=== PATIENT | female | born 1940 | race Caucasian/White ===

== ENCOUNTER → 2016-11-05 | Outpatient (CLI) | payer OTHER ==
[~2016-11-05] MED LIST: ASPI81TA28 PO; BETAMETHASONE TOP; FMR25 PO; HYDR12.55 PO; METO50TA16 PO; NTRGSL/4 UT; POTA10CA28 PO; PRLSR20 PO; SIMV40TA2 PO
--- NOTE | 2016-11-08 13:48 | MAMMOGRAPHY REPORT ---
UNILATERAL RIGHT DIGITAL DIAGNOSTIC MAMMOGRAM TOMOSYNTHESIS WITH CAD AND TARGETED RIGHT ULTRASOUND: 11/05/2016 CLINICAL HISTORY: History right breast cancer status post lumpectomy and radiation therapy. Here fo r her first follow-up after treatment. She denies any palpable lumps or other new complaints. TECHNIQUE: Breast tomosynthesis in addition to standard 2D mammography was performed. Current study was also evaluated with a Computer Aided Detection (CAD) system. Right CC and MLO 2-D and tomosynt hesis images and spot magnification right cc and ML views were obtained. COMPARISON: Comparison is made to exams dated: 05/19/2016 localization, 05/11/2016 mammogram, and 2015 ultrasound - [facility]. BREAST COMPOSITION: There are scattered areas of fibroglandular density in the right breast. FINDINGS: There are new post surgical changes in the right upper outer quadrant from prior lumpecto my, including density, architectural distortion, and surgical clips at the lumpectomy bed. On the t omosynthesis images an oval mass is noted at the lumpectomy bed measuring up to 5 cm in size. There is diffuse right breast skin and trabecular thickening, likely related to radiation therapy. The r emainder of the right breast is stable compared to prior exams, without suspicious masses, calcifica tions, or areas of architectural distortion noted. Scattered benign appearing calcifications are no t significantly changed. Targeted ultrasound was performed of the lumpectomy bed. In the right breast at 10:00 along the late ral aspect of the scar, there is an oval anechoic circumscribed mass with a few thin internal septat ions, consistent with a postsurgical fluid collection. This measures at least 4.4 x 1.2 x 2.5 cm an d corresponds with the mass seen on the mammogram. No suspicious solid masses were evident. IMPRESSION: ACR-BI-RADS CATEGORY 3: PROBABLY BENIGN, TARGETED ULTRASOUND ACR-BI-RADS CATEGORY 3: MT OBABLY BENIGN Expected posttreatment changes in the right breast, including a postsurgical fluid collection at the lumpectomy bed measuring at least 4.4 cm. There is no mammographic evidence of malignancy in the r ight breast. Recommend bilateral diagnostic tomosynthesis mammograms in 6 months, to reevaluate the right breast posttreatment changes and for routine mammography of the left breast. The patient has been verbally notified of the results. Approximately 10% of breast cancers are not detected with mammography. A negative mammographic repor t should not delay biopsy if a clinically suggestive mass is present. Bonnie Medina M.D. ah/:11/05/2016 10:51:42 Enrollment Specialist: Mallory PARIKH)(Giancarlo), [facility] letter sent: Personal History 3 BI-RADS Code: ACR-BI-RADS Category 3: Probably Benign Ultrasound BI-RADS: ACR-BI-RADS Category 3: P robably Benign
== END | disposition home or self-care (01) ==
LOC: C.MAMM 10:07
PROVIDERS: ATTEND Radiology Radiation Oncology
DX: C50.411 Malignant neoplasm of upper-outer quadrant of right female breast (principal); Z98.890 Other specified postprocedural states; Z92.3 Personal history of irradiation

== ENCOUNTER → 2016-11-12 | Outpatient (CLI) | payer OTHER ==
[2016-11-12 13:37] LABS: BASO % 0.2 %; BASO ABS # 0.01 K/uL (0-0.2); COMPLETE YES; EOS % 3.1 %; HEMATOCRIT 39.6 % (37-47); IG% 0.2 %; LYMPH % 22.6 %; LYMPH ABS # 1.01 K/uL (1.2-3.4); MEAN CELL VOLUME 90.4 fL (80-100); MEAN CORPUSCULAR HEMOGLOBIN 31.3 pg (25-34); MEAN CORPUSCULAR HGB CONC 34.6 g/dl (32-36); MEAN PLATELET VOLUME 10.5 fL (7.4-10.4); MONO % 10.1 %; NEUT % 63.8 %; PLATELET COUNT 250 K/uL (130-400); RED BLOOD COUNT 4.38 M/uL (4.2-5.4); WHITE BLOOD COUNT 4.47 K/uL (4.8-10.8)
[2016-11-12 13:50] LABS: ALT/SGPT 23 U/L (12-78); AST/SGOT 14 U/L (15-37); BLOOD UREA NITROGEN 21 mg/dl (7-18); BUN/CREATININE RATIO 25.3 (10-20); CALCIUM 10.1 mg/dl (8.5-10.1); CARBON DIOXIDE 31 mmol/L (21-32); CHLORIDE 106 mmol/L (98-107); CREATININE 0.82 mg/dl (0.60-1.20); GLUCOSE 124 mg/dl (70-99); POTASSIUM 3.7 mmol/L (3.5-5.1); SODIUM 144 mmol/L (136-145)
[2016-11-12 13:51] LABS: ALKALINE PHOSPHATASE 113 U/L (45-117)
== END | disposition home or self-care (01) ==
LOC: C.LABMFLN 08:02
PROVIDERS: ATTEND Internal Medicine Hematology & Oncology
DX: C50.411 Malignant neoplasm of upper-outer quadrant of right female breast (principal)

== ENCOUNTER → 2016-12-09 | Outpatient (CLI) | payer OTHER | END | disposition home or self-care (01) | LOC: C.MAMM 13:42 | PROVIDERS: ATTEND Internal Medicine Hematology & Oncology | DX: C50.411 Malignant neoplasm of upper-outer quadrant of right female breast (principal); M81.0 Age-related osteoporosis without current pathological fracture; M85.88 Other specified disorders of bone density and structure, other site ==

== ENCOUNTER → 2017-02-11 | Outpatient (CLI) | payer OTHER ==
[2017-02-11 13:31] LABS: BASO % 0.2 %; BASO ABS # 0.01 K/uL (0-0.2); COMPLETE YES; EOS % 1.5 %; HEMATOCRIT 38.4 % (37-47); IG% 0.2 %; LYMPH % 17.4 %; LYMPH ABS # 0.82 K/uL (1.2-3.4); MEAN CELL VOLUME 90.8 fL (80-100); MEAN CORPUSCULAR HEMOGLOBIN 30.5 pg (25-34); MEAN CORPUSCULAR HGB CONC 33.6 g/dl (32-36); MEAN PLATELET VOLUME 10.8 fL (7.4-10.4); MONO % 10.6 %; NEUT % 70.1 %; PLATELET COUNT 241 K/uL (130-400); RED BLOOD COUNT 4.23 M/uL (4.2-5.4); WHITE BLOOD COUNT 4.72 K/uL (4.8-10.8)
[2017-02-11 13:56] LABS: ALT/SGPT 20 U/L (12-78); BLOOD UREA NITROGEN 17 mg/dl (7-18); BUN/CREATININE RATIO 22.3 (10-20); CARBON DIOXIDE 32 mmol/L (21-32); CHLORIDE 105 mmol/L (98-107); CREATININE 0.74 mg/dl (0.60-1.20); GLUCOSE 131 mg/dl (70-99); SODIUM 143 mmol/L (136-145)
[2017-02-11 13:59] LABS: ALB/GLOB RATIO 0.9 (0.9-2); ALKALINE PHOSPHATASE 109 U/L (45-117); AST/SGOT 15 U/L (15-37)
[2017-02-11 14:52] LABS: CALCIUM 10.5 mg/dl (8.5-10.1)
== END | disposition home or self-care (01) ==
LOC: C.LABMFLN 09:05
PROVIDERS: ATTEND Internal Medicine Hematology & Oncology
DX: C50.411 Malignant neoplasm of upper-outer quadrant of right female breast (principal)

== ENCOUNTER → 2017-04-08 | Outpatient (CLI) | payer OTHER ==
--- NOTE | 2017-04-08 13:22 | MAMMOGRAPHY REPORT ---
BILATERAL DIGITAL DIAGNOSTIC MAMMOGRAM TOMOSYNTHESIS WITH CAD AND TARGETED RIGHT ULTRASOUND: 04/08/2017 CLINICAL HISTORY: History of right breast cancer status post lobectomy and radiation therapy, here fo r her second follow-up after treatment. She reports persistent pain in the right breast in the regio n of her scar from sentinel lymph node biopsy. TECHNIQUE: Breast tomosynthesis in addition to standard 2D mammography was performed. Current study was also evaluated with a Computer Aided Detection (CAD) system. Bilateral CC and MLO 2-D and tomosy nthesis images and spot magnification right cc and ML views were obtained. COMPARISON: Comparison is made to exams dated: 11/05/2016 ultrasound, 11/05/2016 mammogram, 05/19/2016 lo calization, 05/11/2016 mammogram, and 05/11/2016 ultrasound - [facility]. BREAST COMPOSITION: There are scattered areas of fibroglandular density in both breasts. FINDINGS: A square marker daniels the site of pain in the right upper outer quadrant. Again noted are post surgical changes in the right upper outer quadrant from prior lumpectomy, including density, ar chitectural distortion, and surgical clips at the lumpectomy bed. The density at the lumpectomy bed is decreased compared to the November 2016 exam. There is stable mild diffuse right breast skin thicken ing, likely due to radiation therapy. The remainder of both breasts are stable compared to prior exa ms, without suspicious masses, calcifications, or areas of architectural distortion noted. Scattered bilateral benign-appearing calcifications are not significantly changed. Targeted ultrasound was performed of the area of pain pointed out by the patient, along the scar in h er right axillary region from prior sentinel lymph node biopsy. No suspicious masses or other suspic ious sonographic abnormalities are evident in this region. Ultrasound of the lumpectomy bed in the r ight upper outer quadrant at approximately 10:00 demonstrates a residual elongated fluid collection w hich is difficult to measure on ultrasound but measures at least 4.3 x 0.8 x 2.1 cm. This correspond s with some of the decreasing density on the mammogram and is likely decreased in size compared to November 2016 exam. Findings are benign and compatible with a decreasing postsurgical fluid collectio n. No suspicious solid masses are evident. IMPRESSION: ACR BI-RADS CATEGORY 2: BENIGN, TARGETED ULTRASOUND ACR BI-RADS CATEGORY 2: BENIGN Interval decrease in size of benign postsurgical fluid collection at the lumpectomy bed, compared to the November 2016 exam. There is no mammographic evidence of malignancy in either breast. Recommend cl inical follow-up for continued right axillary pain, and recommend routine bilateral mammograms in one year. I would recommend the patient remain a diagnostic patient so that magnification views can be performed of the lumpectomy bed. The patient has been verbally notified of the results. Approximately 10% of breast cancers are not detected with mammography. A negative mammographic report should not delay biopsy if a clinically suggestive mass is present. Bonnie Medina M.D. ah/:04/08/2017 12:01:54 Knock Out Hand: Carole Subramanian, [facility] letter sent: Normal 1/2 BI-RADS Code: ACR BI-RADS Category 2: Benign Ultrasound BI-RADS: ACR BI-RADS Category 2: Benign
== END | disposition home or self-care (01) ==
LOC: C.MAMM 10:02
PROVIDERS: ATTEND Physician Assistant Medical
DX: Z85.3 Personal history of malignant neoplasm of breast (principal); Z08 Encounter for follow-up examination after completed treatment for malignant neoplasm

== ENCOUNTER → 2017-08-05 | Outpatient (CLI) | payer OTHER ==
[2017-08-05 13:07] LABS: ESTIMATED AVERAGE GLUCOSE 134 mg/dl; HA1C FLAG Normal (Normal)
[2017-08-05 13:20] LABS: CHOLESTEROL/HDL RATIO 1.8
== END | disposition home or self-care (01) ==
LOC: C.LABMFLN 08:52
PROVIDERS: ATTEND Family Medicine
DX: E78.5 Hyperlipidemia, unspecified (principal); R73.01 Impaired fasting glucose